=== PATIENT | male | born 1970 | race Two or more races ===

== ENCOUNTER 2019-06-06 11:39 | Emergency (ER) | payer OTHER ==
[~2019-06-06] VITALS: Ht 182.9 cm; Wt 81.6 kg
[2019-06-06 12:00] VITALS: BP 133/75
--- NOTE | 2019-06-06 12:00 | NUR ---
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 pt is seen by jaron villaseñor. will continue to monitor.
--- NOTE | 2019-06-06 12:28 | NUR ---
ED Nurse Note: pt medicated as ordered. pt able to tolerate po meds. will continue to monitor.
[2019-06-06] MEDS ORDERED: Acetaminophen 500mg (ES) tab ORAL ONE (12:30)
--- NOTE | 2019-06-06 12:30 | NUR ---
ED Nurse Note: pt went to xray with tech
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
--- NOTE | 2019-06-06 12:35 | NUR ---
ED Nurse Note: pt went back from xray
[2019-06-06] MEDS ORDERED: Bacitracin Oint UD TOPIC ONE (12:45)
[2019-06-06] MEDS ORDERED: BACITRACIN-P28.35 GM TP (13:25)
[2019-06-06] MEDS ORDERED: LIDODERM700 M1 TOPIC (13:25)
[2019-06-06] MEDS ORDERED: IBUPROFEN600 MG ORAL (13:25)
--- NOTE | 2019-06-06 13:40 | NUR ---
ED Nurse Note: bacitracin applied on pt left foot as ordered
[2019-06-06 13:43] VITALS: BP 130/70
--- NOTE | 2019-06-06 13:43 | NUR ---
ER DISCHARGE NOTE: sling applied on pt right arm. Patient is cleared to be discharged per ERMD, pt is aox4, on room air, with stable vital signs. pt was given dc and prescription instructions, pt was able to verbalize understanding, pt id band and iv site removed without complications. pt is able to ambulate with steady gait. pt took all belongings.
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
--- NOTE | 2019-06-06 14:24 | Diagnostic Imaging Report ---
Indication: Pain, trauma Technique: 2 views of the right scapula Comparison: none Findings: No evidence of acute scapular fracture. No dislocations. The joint spaces are preserved Impression: Negative
== END 2019-06-06 13:43 | disposition home or self-care (01) ==
LOC: EMR 12:37
DX: S49.91XA Unspecified injury of right shoulder and upper arm, initial encounter (principal); S90.512A Abrasion, left ankle, initial encounter; S90.02XA Contusion of left ankle, initial encounter; W01.0XXA Fall on same level from slipping, tripping and stumbling without subsequent striking against object, initial encounter; Y92.9 Unspecified place or not applicable; Y99.0 Civilian activity done for income or pay
CPT/HCPCS: 99284

== ENCOUNTER 2019-06-13 15:36 | Emergency (ER) | payer OTHER ==
[~2019-06-13] VITALS: Ht 177.8 cm; Wt 90.7 kg
[~2019-06-13 15:36] MED LIST: BACITRACIN-P28.35 GM TP; IBUPROFEN600 MG ORAL; LIDODERM700 M1 TOPIC
--- NOTE | 2019-06-13 16:02 | NUR ---
ED Nurse Note: Patient walked into ED c/o right shoulder pain. patient visited ED recently for same symptoms. patient is alert awake x4 ambulatory, breathing unlabored and even
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
[2019-06-13] MEDS ORDERED: ROBAXIN500 MG PO (16:21)
[2019-06-13] MEDS ORDERED: NAPROXEN500 M2 ORAL (16:21)
--- NOTE | 2019-06-13 16:29 | NUR ---
ER DISCHARGE NOTE: Patient is cleared to be discharged per DAMASO CABRALES, pt is aox4, on room air, with stable vital signs. pt was given dc and prescription instructions, pt was able to verbalize understanding, pt id band removed without complications. pt is able to ambulate with steady gait. pt took all belongings.
[2019-06-13 16:30] VITALS: BP 119/72
== END 2019-06-13 16:30 | disposition home or self-care (01) ==
LOC: EMR 16:25
DX: G89.29 Other chronic pain (principal); M25.511 Pain in right shoulder
CPT/HCPCS: 99282